=== PATIENT | male | born 1975 | race Caucasian/White ===

== ENCOUNTER 2021-11-14 05:14 | Day surgery (SDC) | payer OTHER ==
[~2021-11-14] VITALS: Ht 170.2 cm; Wt 125.0 kg
[2021-11-14] MEDS ORDERED: RINGERS SOLUTION,LACTATED 1,000 ML IV ONE (05:28)
[2021-11-14 05:32] LABS: COVID AG,FIA SOURCE NASAL SWAB
[2021-11-14] MEDS ORDERED: VANCOMYCIN HCL 1 GM/VIAL ONE (05:48)
[2021-11-14] MEDS ORDERED: MICROFIBRILLAR COLLAGEN 1 GM PACKAGE TP ONE (05:48)
[2021-11-14] MEDS ORDERED: SODIUM CL IRRIG SOLN BAG 3,000 ML IRRIG ONE (05:48)
[2021-11-14] MEDS ORDERED: MUPIROCIN CALCIUM 2% 22 GM OINTMENT ONE (05:48)
[2021-11-14] MEDS ORDERED: BUPIVACAINE HCL/PF 0.5% 30 ML VIAL ONE (05:48)
[2021-11-14] MEDS ORDERED: BUPIVACAINE LIPOSOME/PF 1.3%-13.3MG/ML SUSPENSION 20 ML VIAL INJ ONE (06:15)
[2021-11-14] MEDS ORDERED: IOHEXOL 240 MG/ML 20 ML VIAL ONE ×2 (06:59→07:00)
[2021-11-14] MEDS ORDERED: CeFAZolin 2 GM/DEXTROSE 50 ML IV ONE ×3 (07:00→10:00)
[2021-11-14] MEDS ORDERED: LIDOCAINE/PF 1% 2 ML VIAL ID ONE (07:00)
[2021-11-14] MEDS ORDERED: RINGERS SOLUTION,LACTATED 1,000 ML IV SCH (07:00)
[2021-11-14] MEDS ORDERED: SODIUM CHLORIDE 0.9% 0 ML ONE (07:05)
[2021-11-14] MEDS ORDERED: MUPIROCIN CALCIUM 2% 22 GM OINTMENT TP ONE ×2 (07:07→08:50)
[2021-11-14] MEDS ORDERED: VANCOMYCIN HCL 1 GM/VIAL TP ONE ×2 (07:07→08:50)
[2021-11-14] MEDS ORDERED: BUPIVACAINE HCL/PF 0.5% 30 ML VIAL SQ ONE (07:07)
[2021-11-14] MEDS ORDERED: BUPIVACAINE LIPOSOME/PF 1.3%-13.3MG/ML SUSPENSION 10 ML VIAL INJ ONE ×2 (07:07→08:45)
[2021-11-14] MEDS ORDERED: HYDROmorphone 2 MG/ML VIAL IVP PRN (07:15)
[2021-11-14] MEDS ORDERED: FentaNYL CITRATE PF 100 MCG/2 ML VIAL IVP PRN (07:15)
[2021-11-14] MEDS ORDERED: MEPERIDINE-PF 25 MG/ML VIAL IVP PRN (07:15)
[2021-11-14] MEDS ORDERED: OXYGEN THERAPY IH SCH (08:00)
[2021-11-14] MEDS ORDERED: ROCURONIUM BROMIDE 10 MG/ML 5 ML VIAL IVP ONE (12:00)
[2021-11-14] MEDS ORDERED: MIDAZOLAM HCL 2 MG/2 ML VIAL IVP ONE (12:00)
[2021-11-14] MEDS ORDERED: ONDANSETRON HCL 4 MG/2 ML VIAL IVP ONE (12:00)
[2021-11-14] MEDS ORDERED: LIDOCAINE/PF 2% 5 ML VIAL IM ONE (12:00)
[2021-11-14] MEDS ORDERED: PROPOFOL 1% 20 ML VIAL IVP ONE (12:00)
[2021-11-14] MEDS ORDERED: KETOROLAC TROMETHAMINE 60 MG/2 ML VIAL IM ONE (12:00)
[2021-11-14] MEDS ORDERED: FentaNYL CITRATE PF 100 MCG/2 ML VIAL IVP ONE (12:00)
[2021-11-14] MEDS ORDERED: DEXAMETHASONE SOD PHOS 4 MG/ML VIAL IVP ONE (12:00)
== END 2021-11-14 11:25 | disposition home or self-care (01) ==
LOC: SURGERY 05:14
PROVIDERS: ATTEND Orthopaedic Surgery
DX: T84.84XA Pain due to internal orthopedic prosthetic devices, implants and grafts, initial encounter (principal); Y83.8 Other surgical procedures as the cause of abnormal reaction of the patient, or of later complication, without mention of misadventure at the time of the procedure; Y92.89 Other specified places as the place of occurrence of the external cause
CPT/HCPCS: 20680; 87426; 88300; 88302; C9290; C9803; J0690 ×2; J1100; J1885; J2250; J2405; J2704; J3010; J3370; J3490 ×3; J7120; Q9966; Q9967